=== PATIENT | female | born 1965 | race American Indian/Alaskan Native ===

== ENCOUNTER 2018-03-03 23:48 | Emergency (ER) | payer OTHER ==
[2018-03-04 00:59] VITALS: BP 142/77
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
[2018-03-04] MEDS ORDERED: FLEXERIL ONE (03:39)
[2018-03-04] MEDS ORDERED: NORCO 5/325 ONE (03:39)
[2018-03-04] MEDS ORDERED: FLEXERIL PO ONE (03:44)
[2018-03-04] MEDS ORDERED: NORCO 5/325 PO ONE (03:44)
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
[2018-03-04] MEDS ORDERED: ULTRAM PO ONE ×2 (04:55)
[2018-03-04] MEDS ORDERED: ULTRAM ONE ×2 (04:58→04:59)
== END 2018-03-04 04:53 | disposition home or self-care (01) ==
LOC: ED 23:48
DX: S42.025A Nondisplaced fracture of shaft of left clavicle, initial encounter for closed fracture (principal); S22.42XA Multiple fractures of ribs, left side, initial encounter for closed fracture; V89.2XXA Person injured in unspecified motor-vehicle accident, traffic, initial encounter; Y93.89 Activity, other specified; Y92.89 Other specified places as the place of occurrence of the external cause; Y99.8 Other external cause status

== ENCOUNTER 2018-12-18 10:50 | Day surgery (SDC) | payer OTHER ==
--- NOTE | 2018-12-18 11:54 | Anesthesia Consultation ---
Anesthesia Consult and Med Hx Date of service: 12/18/18 - Airway Anesthetic Teeth Evaluation: Partials (upper front) ROM Head & Neck: Adequate Mental/Hyoid Distance: Adequate Mallampati Class: Class II Intubation Access Assessment: Probably Good - Pre-Operative Health Status ASA Pre-Surgery Classification: ASA2 Proposed Anesthetic Plan: MAC - Hematic Hx Anemia: Yes
--- NOTE | 2018-12-18 11:54 | Anesthesia Day of Surgery ---
Anesthesia Day of Surgery - Day of Surgery Patient Examined: Yes Patient H&P Reviewed: Yes Patient is NPO: Yes
[2018-12-18] MEDS ORDERED: NACL 0.9% 1000 ML 1,000 ML IV SCH (12:00)
--- NOTE | 2018-12-18 12:25 | History and Physical Report ---
HISTORY OF PRESENT ILLNESS: This is a 53-year-old female who is having a colonoscopy done because of her age as part of colon polyp screening. She is in, otherwise, good health. She has no family history for any colon cancer. SOCIAL HISTORY: Denies any history of smoking or alcohol use. No cardiac issues. No flu shots. MEDICATIONS: She is not on any medications at present. ALLERGIES: No known allergies. PHYSICAL EXAMINATION: VITAL SIGNS: She is afebrile, blood pressure 127/79, pulse 71, height is 5 feet 3 inches, weight is 148 pounds. HEENT AND NECK: Shows no JVD. LUNGS: Clear to auscultation. CARDIOVASCULAR: Normal. ABDOMEN: Soft. Bowel sounds present. NEUROLOGIC: The patient is otherwise alert and oriented. ASSESSMENT AND PLAN: Colon polyp screening, colonoscopy to be done at [facility] on 12/18/2018 and she has been given Suprep as a prep. JOB# [id number] ZOLTAN/ELANA
[2018-12-18] MEDS ORDERED: DIPRIVAN 10 MG/ML IV ONE (12:47)
[2018-12-18] MEDS ORDERED: WATER FOR IRRIG STERILE IR ONE (12:50)
--- NOTE | 2018-12-18 13:20 | Procedure Note ---
Date of procedure: 12/18/18 Pre-op diagnosis: Colon Polyp Screening Post-op diagnosis: other (Normal Colon Mucosa (No Colon Polyp or Diverticular Disease noted)/ Minor,Internal Hemorrhoid) Procedure: Colonoscopy Anesthesia: MAC Surgeon: MANDO CARVER Estimated blood loss: none Pathology: none Condition: stable Disposition: same day (Resume home medication and follow up in 1 to 2 weeks ([phone]).)
[2018-12-18 13:45] VITALS: BP 121/73
--- NOTE | 2018-12-18 14:09 | Operative Report ---
PROCEDURE: Colonoscopy. INDICATIONS: This is a 53-year-old -English female, had a colonoscopy done as part of colon polyp screening. The procedure was done after getting informed consent with MAC anesthesia. Initial rectal exam was unremarkable. Instrument was passed through the rectum onto the cecum and visualization was fair to good. Cecum was identified with ileocecal valve and appendiceal orifice. The scope was withdrawn up to the hepatic flexure and then reintroduced to the cecum. The cecum, ascending colon, transverse colon, descending colon, and sigmoid showed normal mucosa. There was no evidence of any polyps, colitis or diverticular disease and the rectum showed some minor internal hemorrhoid on the retroverted view. There were no biopsies done and no complications associated with the procedure. ASSESSMENT: Colon polyp screening. Normal colon mucosa. No evidence of colon polyp. Diverticular disease noted and minor internal hemorrhoid. Plan is to resume previous medication. Have the patient follow up in the office in 1-2 weeks' time. There was no bleeding or complications associated with the procedure. RNZoe was in the room throughout the entirety of the procedure. JOB# [id number] ZOLTAN/ELANA
== END 2018-12-18 10:51 | disposition home or self-care (01) ==
LOC: GIO 10:50
DX: Z12.11 Encounter for screening for malignant neoplasm of colon (principal); K57.30 Diverticulosis of large intestine without perforation or abscess without bleeding; K64.8 Other hemorrhoids; Z79.899 Other long term (current) drug therapy; Z98.891 History of uterine scar from previous surgery; Z86.2 Personal history of diseases of the blood and blood-forming organs and certain disorders involving the immune mechanism
CPT/HCPCS: 45378; J2704; J7030